=== PATIENT | male | born 1980 | race Hispanic/Latino ===

== ENCOUNTER 2018-03-04 16:23 | Emergency (ER) | payer OTHER ==
[~2018-03-04] VITALS: Ht 162.6 cm; Wt 81.6 kg
[2018-03-04] MEDS ORDERED: SODIUM CHLORIDE 0.9% 1000ML 1,000 ML IV STA (18:06)
[2018-03-04 18:27] LABS: BASOPHILS % 0.2 % (0.0-1.0); HEMATOCRIT 45.4 % (38.2-49.6); HEMOGLOBIN 15.6 g/dL (14.0-18.0); LYMPHOCYTES # (AUTO) 1.8 (1.0-3.2); LYMPHOCYTES % 8.1 % (18.0-39.1); MEAN CORPUSCULAR HEMOGLOBIN 31.9 pg (28-32); MEAN CORPUSCULAR HGB CONC 34.4 g/dL (31-35); MEAN CORPUSCULAR VOLUME 92.8 fL (81-99); MONOCYTES # (AUTO) 1.7 (0.2-0.8); MONOCYTES % 7.5 % (4.4-11.3); NEUTROPHILS # (AUTO) 18.4 (2.1-6.9); NEUTROPHILS % 83.8 % (38.7-80.0); PLATELET COUNT 221 x10e3/uL (140-360); RED BLOOD COUNT 4.89 x10e6/uL (4.3-5.7)
[2018-03-04] MEDS ORDERED: KETOROLAC TROMETHAMINE 30 MG/ML VIAL IV ONE (18:30)
[2018-03-04 18:44] LABS: CLARITY,URINE CLEAR (CLEAR); LEUKOCYTE ESTERASE ,URINE NEGATIVE (NEGATIVE); NITRITE,URINE NEGATIVE (NEGATIVE)
[2018-03-04 18:45] LABS: BILIRUBIN,URINE 2+ (NEGATIVE); KETONES,URINE 1+ (NEGATIVE); PROTEIN,URINE DIPSTICK 1+ (NEGATIVE); URINE UROBILINOGEN 0.2 mg/dL (0.2 - 1)
[2018-03-04 18:46] LABS: COLOR,URINE AMBER (YELLOW)
[2018-03-04 18:51] LABS: ALANINE AMINOTRANSFERASE 25 IU/L (0-55); ALBUMIN 3.9 g/dL (3.5-5.0); ALKALINE PHOSPHATASE 83 IU/L (40-150); AMYLASE 43 U/L (25-125); ANION GAP 15.5 mmol/L (8-16); BLOOD UREA NITROGEN 8 mg/dL (7-26); BUN/CREATININE RATIO 8 (6-25); CALCIUM 9.8 mg/dL (8.4-10.2); CARBON DIOXIDE 28 mmol/L (22-29); CHLORIDE 95 mmol/L (98-107); CREATININE, SERUM 0.98 mg/dL (0.72-1.25); EST GLOMERULAR FILTRATION RATE > 60 ML/MIN (60-); GLUCOSE 122 mg/dL (74-118); LIPASE 8 U/L (8-78); POTASSIUM 3.5 mmol/L (3.5-5.1); SODIUM 135 mmol/L (136-145)
[2018-03-04 19:07] LABS: BACTERIA,URINE FEW /HPF; RBC,URINE 0-5 /HPF (0-5)
[2018-03-04 19:09] LABS: MUCUS,URINE MANY (RARE)
[2018-03-04 21:10] LABS: LYMPHOCYTES % (MANUAL) 7 % (19-48); MONOCYTES % (MANUAL) 5 % (3.4-9.0); NEUTROPHILS % (MANUAL) 88 % (40-74)
[2018-03-04 21:11] LABS: PLATELET ESTIMATE ADEQUATE; PLATELET MORPHOLOGY COMMENT NORMAL; RBC MORPHOLOGY COMMENT NORMAL
--- NOTE | 2018-03-04 21:14 | Diagnostic Imaging Report ---
EXAM: CT ABDOMEN AND PELVIS with IV CONTRAST DATE: 03/04/2018 6:06 PM Time stamp on Exam: 2037 hours INDICATION: Right lower quadrant pain COMPARISON: None TECHNIQUE: The abdomen and pelvis were scanned using a multidetector helical scanner. Coronal and sagittal reformations were obtained. Dose modulation, iterative reconstruction, and/or weight based adjustment of the mA/kV was utilized to reduce the radiation dose to as low as reasonably achievable. Routine protocol performed. IV Contrast: 100 cc Isovue-370 Oral Contrast: Water FINDINGS: LOWER THORAX: No consolidations LIVER: Cyst measuring 9 mm in the left lobe of the liver. BILIARY: The gallbladder is unremarkable. No ductal dilation. SPLEEN: No masses PANCREAS: No masses ADRENALS: No nodules KIDNEYS: Normal GI TRACT: The appendix is dilated to 1.3 cm with marked periappendiceal fat stranding. The remainder of the bowel is unremarkable. VESSELS: Unremarkable PERITONEUM/RETROPERITONEUM: Right lower quadrant inflammation. No free peritoneal air. LYMPH NODES: No lymphadenopathy REPRODUCTIVE ORGANS: Unremarkable BLADDER: Unremarkable SOFT TISSUES: Small left fat-containing inguinal hernia. BONES: No suspicious bone lesions. IMPRESSION: Acute uncomplicated appendicitis. Findings discussed with Dr. Varghese March 04, 2018 at 2109 hours. Signed by: Dr. Brina Murillo M.D. on 03/04/2018 9:11 PM
--- NOTE | 2018-03-04 21:31 | NUR ---
Transfer initiated to [facility]
[2018-03-04] MEDS ORDERED: PIPER-TAZ 3.375 GM 50 ML IV ONE (21:45)
--- NOTE | 2018-03-04 22:17 | NUR ---
attempted to call report without success.
--- NOTE | 2018-03-04 23:33 | NUR ---
REPORT TO [facility]. PT AWAKE ALERT RESP NONLAB, NAD NOTED.
== END 2018-03-04 23:36 | disposition other institution (70) ==
LOC: ER 16:23
DX: R10.31 Right lower quadrant pain (principal); K35.80 Unspecified acute appendicitis
CPT/HCPCS: 36415; 74177; 80053; 81001; 82150; 83690; 85025; 99284; J1885; J2543; J7030